=== PATIENT | female | born 1995 | race Caucasian/White ===

== ENCOUNTER 2017-05-07 13:27 | Emergency (ER) | payer OTHER ==
[~2017-05-07] VITALS: Ht 160 cm; Wt 81.6 kg
[2017-05-07 13:42] VITALS: BP 143/90
--- NOTE | 2017-05-07 13:47 | NUR ---
PT AMBULATES TO CHAIR B
--- NOTE | 2017-05-07 13:57 | NUR ---
PATIENT PRESENTS TO ED WITH C/O RT FOREARM ARM DOG BITE X TODAY.PT [facility];DOG WOKE UP FROM ANESTHESIA AND SUDDENLY ATTACK HER. 3 PUNCTURE WOUND NOTED;NO ACTIVE BLEEDING NOTED;FEELS NUMB ON RT FOREARM DENIES N/V/D; SKIN IS PINK/WARM/DRY; AAOX4 WITH EVEN AND STEADY GAIT; LUNGS CLEAR BL; HR EVEN AND REGULAR; PT DENIES ANY FEVER, CP, SOB, OR COUGH AT THIS TIME; PATIENT STATES PAIN OF 5/10 AT THIS TIME; ER MD MADE AWARE OF PT STATUS.
[2017-05-07] MEDS ORDERED: NEOMYCIN/POLYMYXIN/BACITRACIN 0.9 GM/1 PKT TP ONE (14:15)
[2017-05-07 14:43] VITALS: BP 134/85
--- NOTE | 2017-05-07 14:43 | NUR ---
Patient discharged with v/s stable. Written and verbal after care instructions given and explained. Patient alert, oriented and verbalized understanding of instructions. Ambulatory with steady gait. All questions addressed prior to discharge. ID band removed. Patient advised to follow up with PMD. Rx of IBUPROFEN AND AUGMENTIN given. Patient educated on indication of medication including possible reaction and side effects. Opportunity to ask questions provided and answered.
--- NOTE | 2017-05-07 15:01 | NUR ---
CONFIRMATION OF FAXED ANIMAL BITE REPORT RECIEVED;
== END 2017-05-07 14:43 | disposition home or self-care (01) ==
LOC: MED 13:27
DX: S51.851A Open bite of right forearm, initial encounter (principal); Z88.2 Allergy status to sulfonamides; W54.0XXA Bitten by dog, initial encounter; Y93.89 Activity, other specified; Y92.89 Other specified places as the place of occurrence of the external cause; Y99.8 Other external cause status
CPT/HCPCS: 90471; 90715; 99283